=== PATIENT | female | born 1985 | race Two or more races ===

== ENCOUNTER 2017-11-16 18:50 | Emergency (ER) | payer OTHER ==
[2017-11-16 19:36] VITALS: BP 111/54
--- NOTE | 2017-11-16 20:33 | EDM.PDOC ---
ED HPI GENERAL MEDICAL PROBLEM - General Chief Complaint: Lower Extremity Injury/Pain Stated Complaint: FELL AT WORK Time Seen by Provider: 11/16/17 20:25 - History of Present Illness INITIAL COMMENTS - FREE TEXT/NARRATIVE: HISTORY AND PHYSICAL: History of present illness: Patient 32-year-old female presents status post fall which injured her left knee she denies any other trauma or concern she sustained an abrasion her left knee with a fall she had no other complaints and is not up-to-date on her tetanus Review of systems: As per history of present illness and below otherwise all systems reviewed and negative. Past medical history: As per history of present illness and as reviewed below otherwise noncontributory. Surgical history: As per history of present illness and as reviewed below otherwise noncontributory. Social history: No reported history of drug or alcohol abuse. Family history: As per history of present illness and as reviewed below otherwise noncontributory. Physical exam: HEENT: Atraumatic, normocephalic, pupils reactive, negative for conjunctival pallor or scleral icterus, mucous membranes moist, throat clear, neck supple, nontender, trachea midline. Lungs: Clear to auscultation, breath sounds equal bilaterally, chest nontender. Heart: S1S2, regular, negative for clicks, rubs, or JVD. Abdomen: Soft, nondistended, nontender. Negative for masses or hepatosplenomegaly. Negative for costovertebral tenderness. Pelvis: Stable nontender. Genitourinary: Deferred. Rectal: Deferred. Extremities: Patient has abrasion to her left knee noted there's no gross deformity joint is grossly stable is no effusion CMS neurovascular exams unremarkable. Neuro: Awake, alert, oriented. Cranial nerves II through XII unremarkable. Cerebellum unremarkable. Motor and sensory unremarkable throughout. Exam nonfocal. Diagnostics: X-ray left knee Therapeutics: Tetanus update wound prep bacitracin dressing Impression: 1 acute left knee injury with abrasion/contusion Definitive disposition and diagnosis as appropriate pending reevaluation and review of above. bilateral knee Pain Score (Numeric/FACES): 6 - Related Data Allergies Allergy/AdvReac Type Severity Reaction Status Date / Time No Known Allergies Allergy Verified 11/16/17 20:20 Home Meds: Home Meds . [No Known Home Meds] 04/16/16 [History] Past Medical History - Past Health History Medical/Surgical History: Denies Medical/Surgical History Gastrointestinal History: Reports: None Genitourinary History: Reports: None [employer] History: Reports: - Infectious Disease History Infectious Disease History: Reports: Chicken Pox - Past Surgical History Female Surgical History: Reports: Section Social & Family History - Family History Family Medical History: Noncontributory - Tobacco Use Smoking Status *Q: Current Every Day Smoker Years of Tobacco use: 1 Packs/Tins Daily: 0.5 - Caffeine Use Caffeine Use: Reports: Coffee, Energy Drinks, Soda - Recreational Drug Use Recreational Drug Use: No Review of Systems - Review of Systems Review Of Systems: ROS reveals no pertinent complaints other than HPI. ED EXAM, GENERAL - Physical Exam Exam: See Below (Dictation) Course - Vital Signs Last Recorded V/S: Last Vital Signs Temp 36.0 C 11/16/17 19:28 Pulse 76 11/16/17 19:28 Resp 18 11/16/17 19:28 BP 111/54 L 11/16/17 19:28 Pulse Ox 100 11/16/17 19:28 Departure - Departure Time of Disposition: 20:32 Disposition: Home, Self-Care 01 Condition: Good Clinical Impression: Knee injury, Abrasion, Contusion - Discharge Information *PRESCRIPTION DRUG MONITORING PROGRAM REVIEWED*: Not Applicable *COPY OF PRESCRIPTION DRUG MONITORING REPORT IN PATIENT ASHLYN: Not Applicable Referrals: PCP,None [Primary Care Provider] - Additional Instructions: The following information is given to patients seen in the emergency department who are being discharged to home. This information is to outline your options for follow-up care. We provide all patients seen in our emergency department with a follow-up referral. The need for follow-up, as well as the timing and circumstances, are variable depending upon the specifics of your emergency department visit. If you don't have a primary care physician on staff, we will provide you with a referral. We always advise you to contact your personal physician following an emergency department visit to inform them of the circumstance of the visit and for follow-up with them and/or the need for any referrals to a consulting specialist. The emergency department will also refer you to a specialist when appropriate. This referral assures that you have the opportunity for followup care with a specialist. All of these measure are taken in an effort to provide you with optimal care, which includes your followup. Under all circumstances we always encourage you to contact your private physician who remains a resource for coordinating your care. When calling for followup care, please make the office aware that this follow-up is from your recent emergency room visit. If for any reason you are refused follow-up, please contact the [facility] emergency department at and asked to speak to the emergency department charge nurse. Follow-up primary medical doctor/occupational medicine wound care as directed Motrin/Tylenol directed return as needed as discussed
--- NOTE | 2017-11-17 20:52 | CR ---
EXAM DATE: 11/16/17 PATIENT'S AGE: 32 Patient: MIKE ARNOLD Facility: [place], [place] Site . Site : [id number] Study: XRay Knee Left [id number] 9:14:26 PM Ordering Physician: JESSICA Final Report: INDICATION: Fall. TECHNIQUE: Three views left knee COMPARISON: None FINDINGS: Bones: Alignment is normal. No fractures or bone lesions. Joint spaces: Unremarkable. Soft tissues: Soft tissue edema anterior to the patella and anterior to the medial retinaculum. IMPRESSION: Soft tissue edema anterior to the patella and anterior to the medial retinaculum. Dictated by Charlie Lopez MD @ 11/16/2017 9:27:35 PM Dictated by: Charlie Lopez MD @ 11/16/2017 21:27:40 (Electronic Signature) Report Signed by Proxy. PATRICK
== END 2017-11-16 21:45 | disposition home or self-care (01) ==
LOC: MW.ED 18:50
DX: S80.02XA Contusion of left knee, initial encounter (principal); F17.210 Nicotine dependence, cigarettes, uncomplicated
CPT/HCPCS: 73562-26-LT; 73562-LT; 99282; 99283